=== PATIENT | female | born 1960 | race Caucasian/White ===

== ENCOUNTER → 2022-06-19 14:04 | Outpatient (BNVA) | payer OTHER, SELFPAY | PROVIDERS: Visit Provider Nurse Practitioner Family | DX: R68.89 Other general symptoms and signs (principal); U07.1 COVID-19; H69.83 Other specified disorders of Eustachian tube, bilateral; R09.82 Postnasal drip | CPT/HCPCS: 87426 ==

== ENCOUNTER → 2023-11-20 15:10 | Outpatient (BNVA) | payer MEDICARE, OTHER, SELFPAY | PROVIDERS: Visit Provider Nurse Practitioner Family | DX: Z20.822 Contact with and (suspected) exposure to COVID-19 (principal) | CPT/HCPCS: 87426 ==